=== PATIENT | male | born 1960 | race Caucasian/White ===

== ENCOUNTER 2021-11-02 10:41 | Day surgery (SDC) | payer OTHER ==
[~2021-11-02] VITALS: Ht 172.7 cm; Wt 104.1 kg
[~2021-11-02 10:41] MED LIST: CEPH500 PO; CHOL10002 PO; EZET10-10 PO; Flomax0.4 MG PO; LIVALO2 MG PO; ONDA4ODT MM; OXYACE5T PO; ROSU5 PO; TAMS.4ER PO; UBID10 PO; Zofran Odt4 MG PO
[2021-11-02] MEDS ORDERED: ELDERTONIC LIQ473 ML (11:15)
== END 2021-11-02 12:46 | disposition home or self-care (01) ==
LOC: ORSCSDS 10:41
PROVIDERS: Internal Medicine Gastroenterology
PROC: 0DJD8ZZ Inspection of Lower Intestinal Tract, Via Natural or Artificial Opening Endoscopic (ICD-10-PCS; principal; 2021-11-02 12:00)
DX: Z12.11 Encounter for screening for malignant neoplasm of colon (principal); Z86.010 Personal history of colon polyps; Z80.0 Family history of malignant neoplasm of digestive organs; E66.9 Obesity, unspecified; Z68.36 Body mass index [BMI] 36.0-36.9, adult; K57.30 Diverticulosis of large intestine without perforation or abscess without bleeding; Z79.899 Other long term (current) drug therapy
CPT/HCPCS: J0330; J0461; J2405; J2704; J7120